=== PATIENT | male | born 1935 | race Caucasian/White ===

== ENCOUNTER 2021-09-20 08:02 | Day surgery (SDC) | payer MEDICARE ==
[2021-09-19 10:24] VITALS: BMI 28.5
[2021-09-20] MEDS ORDERED: Lidocaine 1% w/Epinephrine 1:100K 20 ML VIAL ONE (08:42)
[2021-09-20] MEDS ORDERED: EPINEPHrine 1 MG/ML AMP ONE ×2 (08:42→09:54)
[2021-09-20] MEDS ORDERED: AFRIN NASAL MIST 15 ML BOT ONE ×2 (08:42→08:57)
[2021-09-20] MEDS ORDERED: Bacitracin Zinc Ointment 30 gm TUBE ONE (08:42)
[2021-09-20] MEDS ORDERED: Famotidine/PF 20 mg/2ml Vial ONE (09:56)
[2021-09-20] MEDS ORDERED: fentaNYL Citrate/PF 100 MCG/2 ML SYRINGE ONE (09:56)
[2021-09-20 10:02] LABS: Hemoglobin 14.4 g/dL (14.0-18.0); Platelet Count 169 thou/uL (130-400)
[2021-09-20 10:13] LABS: Anion Gap 9 mmol/L (10-20); BUN (Urea Nitrogen) 20 mg/dL (8.4-25.7); Calc. Creatinine Clearance 69 mL/min (70-130); Calcium 8.5 mg/dL (7.8-10.44); Carbon Dioxide 29 mmol/L (23-31); Chloride 108 mmol/L (98-107); Glucose 112 mg/dL (83-110); Potassium 3.8 mmol/L (3.5-5.1); Sodium 142 mmol/L (136-145)
[2021-09-20 10:15] LABS: SARS-CoV-2 NAA Rapid Test Not Detected (NotDetected)
[2021-09-20] MEDS ORDERED: Lidocaine 1% PF 5 ML VIAL ONE (10:38)
[2021-09-20] MEDS ORDERED: PROPOFOL 200 MG/20 ML VIAL ONE (10:38)
[2021-09-20] MEDS ORDERED: ePHEDrine 50 MG/ML VIAL ONE (10:38)
[2021-09-20] MEDS ORDERED: Metoclopramide HCl 10 MG/2 ML VIAL ONE (10:38)
[2021-09-20] MEDS ORDERED: Ondansetron PF 4 MG/2 ML Vial ONE (10:38)
[2021-09-20] MEDS ORDERED: Ketorolac Tromethamine 30 MG/ML VIAL ONE (10:38)
[2021-09-20] MEDS ORDERED: Dexamethasone 20 MG/5 ML VIAL ONE (10:38)
[2021-09-20] MEDS ORDERED: PHENYLEPHRINE-NS 100 MCG/ML 10 ML SYRINGE ONE (10:38)
[2021-09-20] MEDS ORDERED: hydrALAZINE 20 MG/ML VIAL ONE (13:15)
== END 2021-09-20 14:43 | disposition home or self-care (01) ==
LOC: SDC 08:02
PROVIDERS: ATTEND Specialist
PROC: 09SM0ZZ Reposition Nasal Septum, Open Approach (ICD-10-PCS; principal; 2021-09-20)
PROC: 8E09XBZ Computer Assisted Procedure of Head and Neck Region (ICD-10-PCS; 2021-09-20)
PROC: 099T8ZZ Drainage of Left Frontal Sinus, Via Natural or Artificial Opening Endoscopic (ICD-10-PCS; 2021-09-20)
PROC: 099S8ZZ Drainage of Right Frontal Sinus, Via Natural or Artificial Opening Endoscopic (ICD-10-PCS; 2021-09-20)
PROC: 099X8ZZ Drainage of Left Sphenoid Sinus, Via Natural or Artificial Opening Endoscopic (ICD-10-PCS; 2021-09-20)
PROC: 099W8ZZ Drainage of Right Sphenoid Sinus, Via Natural or Artificial Opening Endoscopic (ICD-10-PCS; 2021-09-20)
PROC: 099R8ZZ Drainage of Left Maxillary Sinus, Via Natural or Artificial Opening Endoscopic (ICD-10-PCS; 2021-09-20)
PROC: 099Q8ZZ Drainage of Right Maxillary Sinus, Via Natural or Artificial Opening Endoscopic (ICD-10-PCS; 2021-09-20)
PROC: 09TV8ZZ Resection of Left Ethmoid Sinus, Via Natural or Artificial Opening Endoscopic (ICD-10-PCS; 2021-09-20)
PROC: 09TU8ZZ Resection of Right Ethmoid Sinus, Via Natural or Artificial Opening Endoscopic (ICD-10-PCS; 2021-09-20)
DX: J32.9 Chronic sinusitis, unspecified (principal); J34.2 Deviated nasal septum; J34.3 Hypertrophy of nasal turbinates; I10 Essential (primary) hypertension; M19.90 Unspecified osteoarthritis, unspecified site; Z79.899 Other long term (current) drug therapy; Z88.0 Allergy status to penicillin; Z20.822 Contact with and (suspected) exposure to COVID-19
CPT/HCPCS: 30130; 30520; 31256; 31257; 31276; 61782; 80048; 85014; 85018; 85049; 93005; U0002; 36415; 93010; J0171; J0360; J1100; J1885; J2405; J2704; J2765; J3490; J7620; S0028